=== PATIENT | female | born 1970 | race Caucasian/White ===

== ENCOUNTER 2018-04-03 13:05 | Emergency (ER) | payer OTHER ==
[~2018-04-03] VITALS: Ht 162.6 cm; Wt 68.0 kg
[2018-04-03] MEDS ORDERED: ENALAPRIL MALEA10 MG (13:41)
== END 2018-04-03 15:47 | disposition home or self-care (01) ==
LOC: ER 13:05
DX: M79.661 Pain in right lower leg (principal)